=== PATIENT | female | born 1960 | race Caucasian/White ===

== ENCOUNTER → 2018-06-16 | Outpatient (CLI) | payer BC ==
[~2018-06-16] MED LIST: ATENOLOL25 MG PO; CENTRUM1 TA1 PO; FLOVENT 110MCG7.9 GM IH; LOW OGESTREL; PREDNISONE5 MG/5 M1 PO; TYLENOL 325MG325 MG PO; VITAMIN C500 MG PO
== END ==
LOC: MC.RAD 07:53
DX: Z12.31 Encounter for screening mammogram for malignant neoplasm of breast (principal)

== ENCOUNTER → 2020-06-25 | Outpatient (CLI) | payer BC | LOC: MC.RAD 07:51 | DX: Z12.31 Encounter for screening mammogram for malignant neoplasm of breast (principal) ==